=== PATIENT | male | born 1965 | race Caucasian/White ===

== ENCOUNTER 2018-07-05 18:49 | Emergency (ER) | payer BC ==
[2018-07-05] MEDS ORDERED: ASPIRIN 81 MG CHEW PO ONE (19:00)
--- NOTE | 2018-07-05 19:00 | ER Report ---
History and Physical Time Seen By MD: 19:00 Hx. of Stated Complaint: chest pain for 4 days, getting worse today HPI/ROS CHIEF COMPLAINT: Chest pain. HISTORY OF PRESENT ILLNESS: 53-year-old male patient presents to emergency room with complaint of chest pain. Patient states this been going on for the last 4 days. States the pain seems to be located in the right side of the chest. He states that there is nothing seems to make the pain better or worse. He denies having any shortness of breath, any nausea, vomiting. He states that he has been putting chains on his truck frequently, as the patient is an over the road truck driver's offsider, and believes that he may have strained his chest. Patient states that he also had a hurting sensation which started this morning in his chest. He states it seemed to worsen as he is driving through very stressful road conditions. He denies having any thing that makes the pain better or worse. Patient states he is not taking any medication for this. REVIEW OF SYSTEMS: Constitutional: No fever, no chills. Eyes: No discharge. ENT: No sore throat. Respiratory: As above. Cardiac: As above. Gastrointestinal: No abdominal pain, no vomiting. Genitourinary: No hematuria. Musculoskeletal: No back pain. Skin: No rashes. Neurological: No headache. Allergies: Coded Allergies: No Known Drug Allergies (Unverified , 07/05/18) Home Meds Active Scripts Omeprazole (OMEPRAZOLE) 40 Mg Capsule., 40 MG PO QDAY, #30 CAP Prov:ILDA MCCONNELL [facility] 07/05/18 Past Medical/Surgical History Patient denies any pertinent past medical history. Patient has a surgical history of right shoulder surgery. Reviewed Nurses Notes: Yes Constitutional Vital Sign - Last 24 Hours 07/05/18 07/05/18 07/05/18 07/05/18 18:54 18:54 19:00 19:04 Temp 96.7 Pulse 90 86 Resp 14 14 B/P (MAP) 138/94 138/94 (109) 135/102 (113) Pulse Ox 97 96 O2 Delivery Room Air 07/05/18 07/05/18 07/05/18 07/05/18 19:19 19:30 19:34 19:49 Pulse 80 70 78 Resp 7 B/P (MAP) 126/82 (97) Pulse Ox 95 94 95 07/05/18 07/05/18 20:00 20:04 Pulse 79 B/P (MAP) 122/83 (96) Pulse Ox 94 Physical Exam General Appearance: The patient is alert, has no immediate need for airway protection and no current signs of toxicity. Respiratory: Chest is non tender, lungs are clear to auscultation. Cardiac: regular rate and rhythm Gastrointestinal: Abdomen is soft and non tender, no masses, bowel sounds normal. Musculoskeletal: Neck: Neck is supple and non tender. Extremities have full range of motion and are non tender. Skin: No rashes or lesions. DIFFERENTIAL DIAGNOSIS: After history and physical exam differential diagnosis was considered for chest pain including but not limited to myocardial ischemia, pericarditis pulmonary embolus, chest wall pain, pleural inflammation and pulmonary infectious causes. Medical Decision Making Data Points Result Diagram: 07/05/18185807/05/181858 Laboratory Hematology Test 07/05/18 18:59 Red Blood Count 5.57 M/uL (4.00-5.60) Mean Corpuscular Volume 90.8 fL (80.0-96.0) Mean Corpuscular Hemoglobin 31.3 pg (26.0-33.0) Mean Corpuscular Hemoglobin Concent 34.4 g/dL (32.0-36.0) Red Cell Distribution Width 13.5 % (11.5-14.5) Mean Platelet Volume 7.7 fL (7.2-11.1) Neutrophils (%) (Auto) 70.7 % (39.4-72.5) Lymphocytes (%) (Auto) 21.9 % (17.6-49.6) Monocytes (%) (Auto) 6.6 % (4.1-12.4) Eosinophils (%) (Auto) 0.1 % (0.4-6.7) Basophils (%) (Auto) 0.7 % (0.3-1.4) Nucleated RBC Relative Count (auto) 0.0 /100WBC Neutrophils # (Auto) 5.9 K/uL (2.0-7.4) Lymphocytes # (Auto) 1.8 K/uL (1.3-3.6) Monocytes # (Auto) 0.5 K/uL (0.3-1.0) Eosinophils # (Auto) 0.0 K/uL (0.0-0.5) Basophils # (Auto) 0.1 K/uL (0.0-0.1) Nucleated RBC Absolute Count (auto) 0.00 K/uL D-Dimer Quantitative (PE/DVT) < 0.27 ug/ml (0-0.50) Sodium Level 139 mmol/L (137-145) Potassium Level 3.8 mmol/L (3.5-5.0) Chloride Level 110 mmol/L (98-107) Carbon Dioxide Level 21 mmol/L (22-30) Blood Urea Nitrogen 11 mg/dl (9-21) Creatinine 1.00 mg/dl (0.66-1.25) Glomerular Filtration Rate Calc > 60.0 Random Glucose 104 mg/dl (75-110) Calcium Level 9.4 mg/dl (8.4-10.2) Total Bilirubin 0.5 mg/dl (0.2-1.3) Aspartate Amino Transf (AST/SGOT) 26 U/L (0-35) Alanine Aminotransferase (ALT/SGPT) 35 U/L (0-56) Alkaline Phosphatase 83 U/L (0-126) Troponin I < 0.012 ng/ml Total Protein 8.2 g/dl (6.3-8.2) Albumin 4.8 g/dl (3.5-5.0) Chemistry Test 07/05/18 18:59 White Blood Count 8.4 k/uL (4.5-11.0) Red Blood Count 5.57 M/uL (4.00-5.60) Hemoglobin 17.4 g/dL (14.0-18.0) Hematocrit 50.6 % (42.0-52.0) Mean Corpuscular Volume 90.8 fL (80.0-96.0) Mean Corpuscular Hemoglobin 31.3 pg (26.0-33.0) Mean Corpuscular Hemoglobin Concent 34.4 g/dL (32.0-36.0) Red Cell Distribution Width 13.5 % (11.5-14.5) Platelet Count 244 K/uL (150-450) Mean Platelet Volume 7.7 fL (7.2-11.1) Neutrophils (%) (Auto) 70.7 % (39.4-72.5) Lymphocytes (%) (Auto) 21.9 % (17.6-49.6) Monocytes (%) (Auto) 6.6 % (4.1-12.4) Eosinophils (%) (Auto) 0.1 % (0.4-6.7) Basophils (%) (Auto) 0.7 % (0.3-1.4) Nucleated RBC Relative Count (auto) 0.0 /100WBC Neutrophils # (Auto) 5.9 K/uL (2.0-7.4) Lymphocytes # (Auto) 1.8 K/uL (1.3-3.6) Monocytes # (Auto) 0.5 K/uL (0.3-1.0) Eosinophils # (Auto) 0.0 K/uL (0.0-0.5) Basophils # (Auto) 0.1 K/uL (0.0-0.1) Nucleated RBC Absolute Count (auto) 0.00 K/uL D-Dimer Quantitative (PE/DVT) < 0.27 ug/ml (0-0.50) Glomerular Filtration Rate Calc > 60.0 Calcium Level 9.4 mg/dl (8.4-10.2) Total Bilirubin 0.5 mg/dl (0.2-1.3) Aspartate Amino Transf (AST/SGOT) 26 U/L (0-35) Alanine Aminotransferase (ALT/SGPT) 35 U/L (0-56) Alkaline Phosphatase 83 U/L (0-126) Troponin I < 0.012 ng/ml Total Protein 8.2 g/dl (6.3-8.2) Albumin 4.8 g/dl (3.5-5.0) Coagulation Test 07/05/18 18:59 D-Dimer Quantitative (PE/DVT) < 0.27 ug/ml EKG/Imaging Imaging Chest with lateral, 2 views. HISTORY: Chest pain. COMPARISON: None. The heart and mediastinum are unremarkable. Pulmonary vessels are unremarkable. The lungs are clear. The pleural surfaces are unremarkable. No pneumothorax. A slight chronic appearing cortical irregularity is present along the medial anterior aspect of the left third rib. Mild degenerative changes are present in the spine. IMPRESSION: No evidence of acute cardiopulmonary disease. Report Dictated By: Romero Hagen MD at 07/05/2018 7:39 PM Report E-Signed By: Romero Hagen MD at 07/05/2018 7:41 PM ED Course/Re-evaluation ED Course Patient was admitted to an exam room, history and physical were obtained. Differential diagnoses were considered. On examination lungs are clear, heart is regular, abdomen soft nontender. A CBC, CMP, troponin, EKG, chest x-ray, d-dimer were done. The lab results were unremarkable, so troponin was negative, d-dimer was negative. Chest x-ray showed no acute cardiopulmonary processes. With pain starting this morning a do not believe this is a cardiac event in nature. I could very well be a gastric reflux event. As result I did give him a GI cocktail. On reevaluation patient states he did have some mild improvement in his discomfort. The lab work being negative, improvement with a GI cocktail we will go ahead and discharge patient home at this time. He is to follow-up with his primary care provider when he returns home to [place]. He is to emergency room if condition worsens. I believe that stress seems to make things a little bit worse and encouraged him to try to avoid stressful situations. Patient verbalized understanding and agreement with plan. Decision to Disposition Date: Jul 05, 2018 Decision to Disposition Time: 22:41 Depart Departure Latest Vital Signs Vital Signs Date Time Temp Pulse Resp B/P (MAP) Pulse Ox O2 Delivery O2 Flow Rate FiO2 07/05/18 20:04 79 94 07/05/18 20:00 122/83 (96) 07/05/18 19:19 7 07/05/18 18:54 96.7 Room Air Impression: Primary Impression: Chest pain Additional Impressions: Pectoralis muscle strain GERD with esophagitis Condition: Improved Disposition: HOME OR SELF-CARE New Scripts Omeprazole (OMEPRAZOLE) 40 Mg Capsule. 40 MG PO QDAY, #30 CAP Prov: ILDA MCCONNELL 07/05/18 Patient Instructions: Chest Pain (ED) Additional Instructions: Increase fluid intake. Get plenty of rest. Make sure that you are taking time to relax especially with the stressful driving conditions. Follow up with your primary care provider when you return home. Go to an ER if you have worsening chest pain. Take Tylenol as needed for the muscle strain, no more than 4000mg in a 24 hour period. Problem Qualifiers Primary Impression: Chest pain Chest pain type: unspecified Qualified Codes: R07.9 - Chest pain, unspecified Additional Impressions: Pectoralis muscle strain Encounter type: initial encounter Qualified Codes: S29.011A - Strain of muscle and tendon of front wall of thorax, initial encounter ILDA MCCONNELL Jul 05, 2018 19:00
[2018-07-05 19:14] LABS: PLATELET COUNT, AUTOMATED 244 K/uL (150-450)
--- NOTE | 2018-07-05 19:36 | EKG ---
[place] [facility] [place] NAME: JAZZY MARINO : [id number] MR: [id number] V: [id number] EXAM DATE: ORDERING PHYSICIAN: ILDA MCCONNELL TECHNOLOGIST: [email or web address] Test Reason : CHEST PAIN Blood Pressure : / mmHG Vent. Rate : 081 BPM Atrial Rate : 081 BPM P-R Int : 158 ms QRS Dur : 090 ms QT Int : 374 ms P-R-T Axes : 069 088 066 degrees QTc Int : 434 ms Sinus rhythm Nonspecific ST findings No previous ECGs available Confirmed by MARY LUO ([id number]) on 07/06/2018 5:38:09 AM Referred By: Confirmed By:MARY LUO
[2018-07-05] MEDS ORDERED: LIDOCAINE 2% VISC SLN 15ML UDC PO ONE (19:45)
[2018-07-05] MEDS ORDERED: MAG HYD/AL HYD/SIMETH 30ML UDC PO ONE (19:45)
--- NOTE | 2018-07-05 19:45 | RADIOLOGY IMAGING REPORT ---
FACILITY: [facility] - [place] PATIENT NAME: Sammy Graham : 1965 MR: [id number] V: [id number] EXAM DATE: ORDERING PHYSICIAN: ILDA MCCONNELL TECHNOLOGIST: Location: [facility] [place] Patient: Sammy Graham : 1965 Visit/Account:[id number] Date of Sevice: 07/05/2018 Chest with lateral, 2 views. HISTORY: Chest pain. COMPARISON: None. The heart and mediastinum are unremarkable. Pulmonary vessels are unremarkable. The lungs are clear . The pleural surfaces are unremarkable. No pneumothorax. A slight chronic appearing cortical irregul arity is present along the medial anterior aspect of the left third rib. Mild degenerative changes ar e present in the spine. IMPRESSION: No evidence of acute cardiopulmonary disease. Report Dictated By: Romero Hagen MD at 07/05/2018 7:39 PM Report E-Signed By: Romero Hagen MD at 07/05/2018 7:41 PM [id number]
[2018-07-05 20:00] VITALS: BP 122/83
[2018-07-05] MEDS ORDERED: OMEP40CA48 PO (20:10)
== END 2018-07-05 20:13 | disposition home or self-care (01) ==
LOC: ER 18:54
DX: S29.011A Strain of muscle and tendon of front wall of thorax, initial encounter (principal); K21.0 Gastro-esophageal reflux disease with esophagitis
CPT/HCPCS: 71046; 82040; 82247; 82310; 82374; 82435; 82565; 82947; 84075; 84132; 84155; 84295; 84450; 84460; 84484; 84520; 85025; 85379; 93005; 99284